=== PATIENT | female | born 1965 | race Caucasian/White ===

== ENCOUNTER 2018-10-02 05:35 | Inpatient (IN) | payer OTHER ==
[2018-10-02] MEDS: VANCOMYCIN 1 GM (PMX) 250 ML IVPB ×2 (06:29→17:42)
[2018-10-02] MEDS: LACTATED RINGER'S 1,000 ML IV (06:34)
[2018-10-02] MEDS ORDERED: MAGNESIUM HYDROXIDE 30ML CUP PO (07:00)
[2018-10-02] MEDS ORDERED: ACETAMINOPHEN 325 MG TAB PO (07:00)
[2018-10-02] MEDS ORDERED: MEPERIDINE 25 MG INJ IV (07:00)
[2018-10-02] MEDS ORDERED: DIPHENHYDRAMINE 25 MG CAP PO (07:00)
[2018-10-02] MEDS ORDERED: METOCLOPRAMIDE 10 MG INJ IV (07:00)
[2018-10-02] MEDS ORDERED: CEPASTAT LOZENGE MT (07:00)
[2018-10-02] MEDS ORDERED: HYDROmorphONE 0.5 MG/0.5 ML SYG IV (07:00)
[2018-10-02] MEDS ORDERED: NALOXONE (0.4 MG/ML) INJ IV (07:00)
[2018-10-02] MEDS ORDERED: HYDROCODONE/APAP (10/325) TAB PO (07:00)
[2018-10-02] MEDS ORDERED: EPHEDrine 25 MG/5 ML SYG (07:00)
[2018-10-02] MEDS ORDERED: HYDROmorphONE 1 MG/5 ML IV SYRINGE IV (07:00)
[2018-10-02] MEDS ORDERED: hydrALAzine 20 MG INJ IV (07:00)
[2018-10-02] MEDS ORDERED: SEVOFLURANE 15 MIN (07:00)
[2018-10-02] MEDS ORDERED: LABETALOL HCL 20MG INJ IV (07:00)
[2018-10-02] MEDS ORDERED: EPHEDrine 25 MG/5 ML SYG IV (07:00)
[2018-10-02] MEDS ORDERED: DIPHENHYDRAMINE 50 MG INJ IV (07:00)
[2018-10-02] MEDS ORDERED: BISACODYL 10 MG SUPP PR (07:00)
[2018-10-02] MEDS ORDERED: FENTAnyl 50 MCG/ML VIAL IV (07:00)
[2018-10-02] MEDS ORDERED: OXYCODONE/ACETAMINOPHEN (5/325) TAB PO (07:00)
[2018-10-02] MEDS ORDERED: ONDANSETRON 4 MG INJ IV ×2 (07:00)
[2018-10-02] MEDS ORDERED: MIDAZOLAM 1 MG/ML 2 ML INJ (07:05)
[2018-10-02] MEDS ORDERED: ROCURONIUM 50 MG INJ (07:05)
[2018-10-02] MEDS ORDERED: PROPOFOL 20 ML (07:05)
[2018-10-02] MEDS ORDERED: ONDANSETRON 4 MG INJ (08:02)
[2018-10-02] MEDS ORDERED: DEXAMETHASONE 4 MG/ML 5 ML INJ (08:02)
[2018-10-02] MEDS ORDERED: METOCLOPRAMIDE 10 MG INJ (08:02)
[2018-10-02] MEDS: POLYMYXIN/BACITRACIN 1L IRRIG (08:10)
[2018-10-02] MEDS: BUPIVACAINE 0.25%/EPI (SDV) 30 ML INJ (08:10)
[2018-10-02] MEDS: GELATIN SIZE 100 SPONGE (08:11)
[2018-10-02] MEDS: THROMBIN (BOVINE) 5,000 UNIT VIAL TP (08:11)
[2018-10-02] MEDS: SURGIFOAM POWDER 1 GM KIT (08:12)
[2018-10-02] MEDS ORDERED: SUGAMMADEX SODIUM 200 MG/2 ML VIAL IV (10:02)
[2018-10-02] MEDS: FENTAnyl 50 MCG/ML VIAL IV ×2 (10:49→11:30)
[2018-10-02] MEDS: HYDROmorphONE 1 MG/5 ML IV SYRINGE IV ×3 (11:03→11:41)
[2018-10-02] MEDS ORDERED: SUCCINYLCHOLINE CHLORIDE 100 MG/5 ML SYG IV (11:49)
[2018-10-02] MEDS: D5W-0.45 NACL + KCL 20 MEQ 1,000 ML IV ×2 (12:12→16:51)
[2018-10-02] MEDS: HYDROCODONE/APAP (10/325) TAB PO ×3 (13:19→21:36)
[2018-10-02] MEDS: CYCLOBENZAPRINE 10 MG TAB PO (14:50)
[2018-10-02] MEDS: DOCUSATE SODIUM 100 MG CAP PO ×2 (14:54→21:25)
[2018-10-02] MEDS: DIPHENHYDRAMINE 50 MG INJ IV (21:26)
[2018-10-03] MEDS: HYDROCODONE/APAP (10/325) TAB PO ×3 (01:40→13:35)
[2018-10-03] MEDS: D5W-0.45 NACL + KCL 20 MEQ 1,000 ML IV ×2 (01:40→12:51)
[2018-10-03] MEDS: VANCOMYCIN 1 GM (PMX) 250 ML IVPB (05:09)
[2018-10-03 05:40] LABS: ADD MAN DIFF? NO
[2018-10-03 05:49] LABS: WHITE BLOOD COUNT 11.8 10^3/ul (4.8-10.8)
[2018-10-03 05:49] LABS: BASOPHILS % 0.2 % (0.0-2.0); HEMATOCRIT 32.6 % (37.0-47.0); HEMOGLOBIN 10.8 g/dl (12.0-16.0); LYMPHOCYTES # 0.8 10^3/ul (0.8-2.9); LYMPHOCYTES % 6.4 % (15.0-51.0); MEAN CORPUSCULAR HEMOGLOBIN 29.9 pg (29.0-33.0); MEAN CORPUSCULAR HGB CONC 33.1 g/dl (32.0-37.0); MEAN CORPUSCULAR VOLUME 90.3 fl (82.0-101.0); MONOCYTE # 0.9 10^3/ul (0.3-0.9); NEUTROPHIL # 10.1 10^3/ul (1.6-7.5); NEUTROPHILS % 85.1 % (39.0-77.0); PLATELET COUNT 211 10^3/UL (140-415); RED BLOOD COUNT 3.61 10^6/ul (4.20-5.40); RED CELL DISTRIBUTION WIDTH 13.2 % (11.5-14.5)
[2018-10-03 06:19] LABS: ANION GAP 7 (5-13); BLOOD UREA NITROGEN 9 mg/dl (7-20); CALCIUM 8.5 mg/dl (8.4-10.2); CARBON DIOXIDE 27 mmol/L (21-31); CHLORIDE 107 mmol/L (97-110); CREATININE 0.58 mg/dl (0.44-1.00); Estimated GFR > 60 mL/min (>60); GLUCOSE 137 mg/dl (70-220); MAGNESIUM 2.2 mg/dl (1.7-2.5); POTASSIUM 4.1 mmol/L (3.5-5.1); SODIUM 141 mmol/L (135-144)
[2018-10-03] MEDS: DOCUSATE SODIUM 100 MG CAP PO (08:07)
[2018-10-03] MEDS: AMLODIPINE 5 MG TAB PO (08:08)
[2018-10-03] MEDS: LOSARTAN 50 MG TAB PO (08:09)
[2018-10-03] MEDS: HYDROCHLOROTHIAZIDE 25 MG TAB PO (08:09)
[2018-10-03] MEDS: CYCLOBENZAPRINE 10 MG TAB PO (08:09)
== END 2018-10-03 14:41 | disposition home or self-care (01) | DRG 473 ==
LOC: REC 05:35 → MS1 11:49
PROC: 0RG20A0 Fusion of 2 or more Cervical Vertebral Joints with Interbody Fusion Device, Anterior Approach, Anterior Column, Open Approach (ICD-10-PCS; principal; 2018-10-02 07:00)
PROC: 0RG20K0 Fusion of 2 or more Cervical Vertebral Joints with Nonautologous Tissue Substitute, Anterior Approach, Anterior Column, Open Approach (ICD-10-PCS; 2018-10-02 07:00)
PROC: 00NW0ZZ Release Cervical Spinal Cord, Open Approach (ICD-10-PCS; 2018-10-02 07:00)
PROC: 01N10ZZ Release Cervical Nerve, Open Approach (ICD-10-PCS; 2018-10-02 07:00)
PROC: 0RB30ZZ Excision of Cervical Vertebral Disc, Open Approach (ICD-10-PCS; 2018-10-02 07:00)
DX: M50.121 Cervical disc disorder at C4-C5 level with radiculopathy (principal); M48.02 Spinal stenosis, cervical region
CPT/HCPCS: 72050; 80048; 83735; 85025; 87086; 88304; 97116; 97161; 97530